=== PATIENT | female | born 1965 | race Caucasian/White ===

== ENCOUNTER 2021-07-09 15:16 | Inpatient (IN) | payer MEDICAID, OTHER, SELFPAY ==
[~2021-07-09] VITALS: Ht 167.6 cm; Wt 113.5 kg
--- NOTE | 2021-07-09 19:01 | NUR ---
AMBULATORY TO ROOM FROM LOBBY. NAD.
[2021-07-09] MEDS ORDERED: ONDANSETRON 2MG/ML, 2ML ONE (19:19)
[2021-07-09] MEDS ORDERED: SODIUM CHLORIDE FLUSH 10ML SYR IVF ONE (19:30)
[2021-07-09] MEDS ORDERED: SODIUM CHLORIDE 0.9% 1,000ML IVBOLUS ONE (19:30)
[2021-07-09] MEDS ORDERED: ONDANSETRON 2MG/ML, 2ML IVPush ONE (19:30)
--- NOTE | 2021-07-09 20:54 | NUR ---
AMBULATED PT TO RESTROOM FOR UA. UNABLE TO PROVIDE URINE SAMPLE AT THIS TIME.
[2021-07-09] MEDS ORDERED: KETOROLAC 30 MG/1 ML ONE (21:21)
[2021-07-09] MEDS ORDERED: KETOROLAC 30 MG/1 ML IVPush ONE (21:30)
[2021-07-09 21:32] LABS: BASOPHILS % (AUTO) 0 % (0-1); EOSINOPHILS % (AUTO) 1 % (1-7); LYMPHOCYTES % (AUTO) 24 % (22-44); MEAN CORPUSCULAR HGB CONC 32.2 g/dL (32.4-35.8); MEAN PLATELET VOLUME 11.4 fL (7.4-10.4); MONOCYTES % (AUTO) 6 % (2-9); NEUTROPHILS % (AUTO) 70 % (42-75); PLATELET COUNT 243 x10^3/uL (130-400); RED BLOOD COUNT 4.12 x10^6/uL (3.82-5.3); RED CELL DISTRIBUTION WIDTH 16.7 % (9.6-15.2)
[2021-07-09 21:40] LABS: ALBUMIN 3.7 g/dL (3.4-5.0); ANION GAP 14 mmol/L (5-15); CALCIUM 9.6 mg/dL (8.5-10.1); CHLORIDE 97 mmol/L (98-107)
[2021-07-09 21:42] LABS: ALANINE AMINOTRANSFERASE 22 U/L (12-78); ALKALINE PHOSPHATASE 72 U/L (45-117); BILIRUBIN,TOTAL 0.8 mg/dL (0.2-1.0); CREATININE 6.08 mg/dL (0.55-1.02); TOTAL PROTEIN 8.6 g/dL (6.4-8.2)
[2021-07-09 22:07] LABS: MICROSCOPIC AUTO
[2021-07-09] MEDS ORDERED: GLYB5TAB3 PO (23:17)
[2021-07-09] MEDS ORDERED: OXYB5TAB10 PO (23:17)
[2021-07-09] MEDS ORDERED: LISI-170 PO (23:17)
[2021-07-09] MEDS ORDERED: GABA600T7 PO (23:17)
[2021-07-09] MEDS ORDERED: FLUO20CA23 PO (23:17)
[2021-07-09] MEDS ORDERED: HYDR50TA99 PO (23:17)
--- NOTE | 2021-07-09 23:51 | NUR ---
Pt to be admitted to [facility], room 351. Report called to NIMO STONE.
[2021-07-10] MEDS ORDERED: AMLO-211 PO (01:02)
[2021-07-10 01:03] VITALS: BP 138/81
[2021-07-10 01:13] VITALS: BP 138/81
[2021-07-10] MEDS ORDERED: hydrALAzine 20 MG/ML, 1ML IVPush PRN (01:30)
[2021-07-10] MEDS ORDERED: ACETAMINOPHEN 325 MG TABLET PO PRN (01:30)
[2021-07-10] MEDS ORDERED: MELATONIN 5 MG TABLET PO PRN (01:30)
[2021-07-10] MEDS ORDERED: BISACODYL 10 MG SUPP PR PRN (01:30)
[2021-07-10 05:48] LABS: ANION GAP 6 mmol/L (5-15); CALCIUM 8.5 mg/dL (8.5-10.1); CHLORIDE 105 mmol/L (98-107)
[2021-07-10 05:59] LABS: CREATININE 6.41 mg/dL (0.55-1.02)
[2021-07-10 07:56] VITALS: BP 103/68
[2021-07-10] MEDS: CEFTRIAXONE 1,000 MG in DEXTROSE 5% 50 ML IVPB SCH (09:23)
[2021-07-10] MEDS ORDERED: METO50TA6 PO (10:02)
[2021-07-10] MEDS ORDERED: OXYB10TA26 PO (10:02)
[2021-07-10 13:50] VITALS: BP 102/58
[2021-07-10 15:28] LABS: CLOSTRIDIUM DIFFICILE ANTIGEN NEGATIVE; CLOSTRIDIUM DIFFICILE TOXIN NEGATIVE (Negative)
[2021-07-10] MEDS: GABAPENTIN 100 MG CAPSULE PO SCH ×2 (17:10→20:22)
[2021-07-10] MEDS: CALCIUM ACETATE 667 MG CAPSULE PO SCH ×2 (17:10→20:22)
[2021-07-10] MEDS: INSULIN LISPRO 100 UNITS/ML, PEN SQ-INSULIN SCH ×2 (17:11→20:09)
[2021-07-10 18:22] VITALS: BP 104/58
[2021-07-10 18:52] VITALS: BP 92/58
[2021-07-10] MEDS: hydrOXyzine 50MG TABLET PO SCH (20:22)
[2021-07-10] MEDS: METOPROLOL TARTRATE 50 MG TAB PO SCH (20:22)
[2021-07-10] MEDS: SODIUM BICARBONATE 650 MG TABLET PO SCH (20:22)
[2021-07-11 00:32] VITALS: BP 117/66
[2021-07-11 05:42] LABS: ANION GAP 9 mmol/L (5-15); CHLORIDE 107 mmol/L (98-107)
[2021-07-11 05:43] LABS: CREATININE 5.34 mg/dL (0.55-1.02)
[2021-07-11] MEDS: INSULIN LISPRO 100 UNITS/ML, PEN SQ-INSULIN SCH ×4 (07:00→20:16)
[2021-07-11] MEDS: SODIUM BICARBONATE 650 MG TABLET PO SCH ×2 (07:15→20:16)
[2021-07-11] MEDS: CALCIUM ACETATE 667 MG CAPSULE PO SCH ×3 (07:15→20:16)
[2021-07-11] MEDS: METOPROLOL TARTRATE 50 MG TAB PO SCH ×2 (07:15→20:16)
[2021-07-11] MEDS: AMLODIPINE 10 MG TAB PO SCH (07:15)
[2021-07-11] MEDS: FLUOXETINE HCL 20 MG CAPSULE PO SCH (07:15)
[2021-07-11] MEDS: GABAPENTIN 100 MG CAPSULE PO SCH ×3 (07:15→20:16)
[2021-07-11] MEDS: CEFTRIAXONE 1,000 MG in DEXTROSE 5% 50 ML IVPB SCH (07:18)
[2021-07-11 07:56] VITALS: BP 104/68
[2021-07-11] MEDS ORDERED: ERGOCALCIFEROL 50,000 UNIT CAPSULE PO SCH (09:00)
[2021-07-11 13:08] VITALS: BP 112/65
[2021-07-11 14:31] LABS: ALANINE AMINOTRANSFERASE 20 U/L (12-78); ALBUMIN 2.8 g/dL (3.4-5.0); ANION GAP 10 mmol/L (5-15); CALCIUM 8.7 mg/dL (8.5-10.1); CHLORIDE 106 mmol/L (98-107); CREATININE 4.71 mg/dL (0.55-1.02)
[2021-07-11 14:34] LABS: ALKALINE PHOSPHATASE 65 U/L (45-117); BILIRUBIN,TOTAL 0.4 mg/dL (0.2-1.0); TOTAL PROTEIN 6.7 g/dL (6.4-8.2)
[2021-07-11 15:54] LABS: BASOPHILS % (AUTO) 1 % (0-1); EOSINOPHILS % (AUTO) 3 % (1-7); LYMPHOCYTES % (AUTO) 33 % (22-44); MEAN CORPUSCULAR HEMOGLOBIN 29.3 pg (27.0-34.8); MEAN CORPUSCULAR HGB CONC 32.8 g/dL (32.4-35.8); MEAN PLATELET VOLUME 11.1 fL (7.4-10.4); MONOCYTES % (AUTO) 6 % (2-9); NEUTROPHILS % (AUTO) 58 % (42-75); PLATELET COUNT 141 x10^3/uL (130-400); RED BLOOD COUNT 3.66 x10^6/uL (3.82-5.3); RED CELL DISTRIBUTION WIDTH 16.1 % (9.6-15.2)
[2021-07-11 20:00] VITALS: BP 118/66
[2021-07-11] MEDS: hydrOXyzine 50MG TABLET PO SCH (20:16)
[2021-07-12 01:00] VITALS: BP 100/61
[2021-07-12 06:42] LABS: BASOPHILS % (AUTO) 1 % (0-1); EOSINOPHILS % (AUTO) 3 % (1-7); LYMPHOCYTES % (AUTO) 39 % (22-44); MEAN CORPUSCULAR HGB CONC 32.7 g/dL (32.4-35.8); MEAN PLATELET VOLUME 10.8 fL (7.4-10.4); MONOCYTES % (AUTO) 8 % (2-9); NEUTROPHILS % (AUTO) 49 % (42-75); PLATELET COUNT 157 x10^3/uL (130-400); RED BLOOD COUNT 3.91 x10^6/uL (3.82-5.3); RED CELL DISTRIBUTION WIDTH 16.4 % (9.6-15.2)
[2021-07-12 06:52] LABS: ANION GAP 4 mmol/L (5-15); CALCIUM 9.1 mg/dL (8.5-10.1); CHLORIDE 111 mmol/L (98-107)
[2021-07-12 06:56] LABS: ALANINE AMINOTRANSFERASE 17 U/L (12-78); ALKALINE PHOSPHATASE 65 U/L (45-117); BILIRUBIN,TOTAL 0.4 mg/dL (0.2-1.0); CREATININE 3.64 mg/dL (0.55-1.02); TOTAL PROTEIN 7.1 g/dL (6.4-8.2)
[2021-07-12 07:20] VITALS: BP 117/63
[2021-07-12] MEDS: INSULIN LISPRO 100 UNITS/ML, PEN SQ-INSULIN SCH ×3 (07:36→16:29)
[2021-07-12] MEDS ORDERED: CEFTRIAXONE 2,000 MG in DEXTROSE 5% 50 ML IVPB SCH (08:30)
[2021-07-12] MEDS: SODIUM BICARBONATE 650 MG TABLET PO SCH (09:04)
[2021-07-12] MEDS: GABAPENTIN 100 MG CAPSULE PO SCH ×2 (09:04→16:29)
[2021-07-12] MEDS: METOPROLOL TARTRATE 50 MG TAB PO SCH (09:04)
[2021-07-12] MEDS: CALCIUM ACETATE 667 MG CAPSULE PO SCH ×2 (09:04→16:29)
[2021-07-12] MEDS: FLUOXETINE HCL 20 MG CAPSULE PO SCH (09:04)
[2021-07-12] MEDS: AMLODIPINE 10 MG TAB PO SCH (09:04)
[2021-07-12] MEDS ORDERED: CALC667C PO (11:50)
[2021-07-12] MEDS ORDERED: SODI650T PO (11:50)
[2021-07-12 13:10] VITALS: BP 123/72
== END 2021-07-12 16:35 | disposition home or self-care (01) | DRG 683 ==
LOC: ED 22:19 → EDIP 23:11 → 3N 07-10 00:58
PROVIDERS: ADMIT Internal Medicine; ATTEND Hospitalist
DX: N17.9 Acute kidney failure, unspecified (principal); Z68.41 Body mass index [BMI] 40.0-44.9, adult; I12.9 Hypertensive chronic kidney disease with stage 1 through stage 4 chronic kidney disease, or unspecified chronic kidney disease; N18.4 Chronic kidney disease, stage 4 (severe); E11.22 Type 2 diabetes mellitus with diabetic chronic kidney disease; E66.01 Morbid (severe) obesity due to excess calories; E83.39 Other disorders of phosphorus metabolism; F15.10 Other stimulant abuse, uncomplicated; F17.200 Nicotine dependence, unspecified, uncomplicated; K76.0 Fatty (change of) liver, not elsewhere classified; Z83.3 Family history of diabetes mellitus
CPT/HCPCS: 36415; 76700; 80048; 80053; 80074; 81001; 82306; 82570; 82962; 83036; 83690; 83735; 83970; 84100; 84155; 84156; 84165; 84166; 84443; 85025; 86038; 86480; 87086; 87324; 93005; 96361; 96374; 99285; G0378; J0696; J1885; J2405; J1815; J7030